=== PATIENT | female | born 1995 | race African-American/Black ===

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

== ENCOUNTER 2021-03-16 16:42 | Emergency (ER) | payer MEDICAID ==
[~2021-03-16] VITALS: Ht 167.6 cm; Wt 85.0 kg
[2021-03-16 17:42] LABS: BASOPHILS % 0.3 % (0.0-2.0); EOSINOPHILS % 3.3 % (0.0-5.0); HEMATOCRIT. 38.5 % (36.0-48.0); HEMOGLOBIN. 12.9 g/dL (12.0-16.0); MEAN CORPUSCULAR HEMOGLOBIN 27.4 pg (28.0-32.0); MEAN CORPUSCULAR VOLUME 81.6 fL (81.0-99.0); MEAN PLATELET VOLUME 8.7 fl (7.4-10.4); MONOCYTES % 7.8 % (2.0-8.0); NEUTROPHILS % 64.6 % (40.0-76.0); PLATELET 391 x1000/uL (130-400); RED BLOOD CELL COUNT 4.71 mill/uL (4.2-5.4); RED CELL DISTRIBUTION WIDTH 14.4 % (11.6-14.6)
[2021-03-16 17:46] LABS: CHLORIDE 105 mEq/L (98-107)
[2021-03-16 18:17] LABS: B-HCG QUANTITATIVE 83949 mIU/mL (<3)
[2021-03-16 19:39] LABS: CLARITY URINE CLEAR (CLEAR); COLOR URINE YELLOW (YELLOW); KETONES URINE 2+ (NEGATIVE); LEUKOCYTE ESTERASE URINE NEGATIVE (NEGATIVE); NITRITE URINE NEGATIVE (NEGATIVE); OCCULT BLOOD URINE NEGATIVE (NEGATIVE); PROTEIN URINE NEGATIVE (NEGATIVE); SPECIFIC GRAVITY URINE 1.008 (1.005-1.030); UROBILINOGEN URINE 0.2 E.U./dL (0.2-1.0)
[2021-03-16 20:36] VITALS: BP 113/65
== END 2021-03-16 20:37 | disposition home or self-care (01) ==
LOC: ER 16:42 → EDBD 16:42 → ER 20:37
DX: O20.0 Threatened abortion (principal); O26.891 Other specified pregnancy related conditions, first trimester; R56.9 Unspecified convulsions; Z3A.10 10 weeks gestation of pregnancy
CPT/HCPCS: 36415; 76801; 80053; 81003; 81025; 84702; 85025; 86850; 86900; 99284

== ENCOUNTER 2022-04-01 11:44 | Emergency (ER) | payer MEDICAID ==
[~2022-04-01] VITALS: Ht 157.5 cm; Wt 91.0 kg
[2022-04-01 11:47] VITALS: BP 132/86
[2022-04-01] MEDS ORDERED: CIPR3.5O EACHEYE (15:42)
== END 2022-04-01 16:15 | disposition home or self-care (01) ==
LOC: ER 11:44
DX: H10.9 Unspecified conjunctivitis (principal); Z88.0 Allergy status to penicillin
CPT/HCPCS: 99283

== ENCOUNTER 2024-02-08 21:53 | Emergency (ER) | payer MEDICAID, OTHER ==
[~2024-02-08] VITALS: Ht 157.5 cm; Wt 101.2 kg
[~2024-02-08 21:53] MED LIST changes: +CIPR3.5O EACHEYE
[2024-02-08 22:00] VITALS: O2SAT 98
[2024-02-08] MEDS ORDERED: LIDO700A15 TP (22:14)
[2024-02-08] MEDS ORDERED: ACET-2708 MT (22:14)
[2024-02-09] MEDS: IBUPROFEN 400MG TABLET PO ONE (00:11)
[2024-02-09 00:13] VITALS: BP 129/79; PULSE 75; RESP 19; TEMP 36.72516; O2SAT 98
== END 2024-02-09 00:15 | disposition home or self-care (01) ==
LOC: ER 21:53
DX: M79.10 Myalgia, unspecified site (principal); Z88.0 Allergy status to penicillin; V49.9XXA Car occupant (driver) (passenger) injured in unspecified traffic accident, initial encounter; Y93.89 Activity, other specified; Y92.89 Other specified places as the place of occurrence of the external cause; Y99.8 Other external cause status
CPT/HCPCS: 81025; 99282